=== PATIENT | female | born 1940 | race Caucasian/White ===

== ENCOUNTER → 2016-11-24 | Outpatient (CLI) | payer MEDICARE, BC ==
[~2016-11-24] MED LIST: COUMADIN PO; COUMADIN5 MG PO; CYCLOBENZAPRINE5 MG PO; HCTZ PO; LANOXIN PO; LISINOPRIL-HCTZ1 T15 PO; LOPRESSOR PO; MAGOX 400400 MG PO; NORVASC PO; TYLENOL325 M1 PO; ULTRAM PO; WARFARIN SODIUM6 M1 PO
--- NOTE | ~2016-11-24 | CO ---
Unit #: [id number] #: [id number] Patient: ESE HOLDER [id number] [address] [place], [place] [address] [id number] O MR#: [id number] NAME: ESE HOLDER ROOM: Age: 76 Sex: F Admission Date: 11/24/2016 : 1940 Attending Physician: Olivier Osei M.D. Primary Care Physician: Edmund Cabezas M.D. Consultation Date: 11/24/2016 CONSULTATION REPORT REASON FOR CONSULTATION Preoperative medical evaluation prior to left total hip arthroplasty scheduled by Dr. Osei for 12/06/2016. HISTORY OF PRESENT ILLNESS The patient is a 76-year-old female, who presents to preprocedural screening for the reasons indicated above. She has a known history of chronic atrial fibrillation, and is on chronic Coumadin therapy. 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 She underwent a myocardial perfusion study on 11/22/2016 and she has an appointment with him tomorrow to discuss the results and to confirm preoperative cardiac clearance. She denies upper chest, arm, neck, jaw, back pain or pressure. She denies shortness of air, dyspnea on exertion, paroxysmal nocturnal dyspnea and orthopnea. She denies lightheadedness or dizziness, presyncope, syncope or palpitations. She denies history of myocardial infarction, congestive heart failure, CVA, TIA, diabetes mellitus and kidney disease. She was evaluated by her dentist on 11/17/2016. PAST MEDICAL HISTORY 1. Osteoarthritis. 2. Chronic atrial fibrillation, on chronic Coumadin therapy. 3. GERD. 4. Hiatal hernia. 5. Hypertension. 6. Hyperlipidemia. 7. Dry eye (right eye). 8. Risk factors for obstructive sleep apnea. 9. Juarez's palsy. PAST SURGICAL HISTORY Hysterectomy. Please note the patient has a history of nausea with general anesthesia. ALLERGIES No known medication allergies. Denies latex allergy. CURRENT MEDICATIONS Lanoxin 0.125 mg p.o. daily, lisinopril/HCTZ 20/25 mg tablet one p.o. daily, Coumadin 5 mg p.o. daily except Sundays and Coumadin 6 mg p.o. on Tuesday. SOCIAL HISTORY Unit #: [id number] #: [id number] Patient: EES HOLDER Denies tobacco, EtOH and illicit drug use. FAMILY HISTORY Per review of Dr. Aceves's office note, father has heart disease with negative family history of myocardial infarction, congestive heart failure, hyperlipidemia or hypertension. REVIEW OF SYSTEMS The patient complains of irritation sensation in the right eye, which she attributes to history of dry eye. She was evaluated by Dr. Boudreaux, her motor rebuilder yesterday and given drops for the right eye, which she is to resume. She reports left eyelid droop when she gets tired from history of Juarez's palsy. A 10-point review of systems is conducted and otherwise negative except as indicated under history of present illness above. PHYSICAL EXAMINATION GENERAL: A 76-year-old, female, awake, alert, in no acute distress. VITAL SIGNS: Temperature 98.6, heart rate 96, respiratory rate 16, blood pressure 129/60, oxygen saturation 98% on room air. HEENT: Atraumatic, normocephalic. Sclerae anicteric. Notes minimal clear discharge from right eye, conjunctiva injected. No periorbital edema or erythema. Clear discharge from nares. No ear discharge. LYMPH: No preauricular, postauricular, tonsillar, submental, anterior-posterior cervical supra or infraclavicular adenopathy. ENDOCRINE: No thyromegaly, thyroid nodules or tenderness. RESPIRATORY: Clear to auscultation in all stover bilaterally without wheezes, rhonchi, or rales. CARDIOVASCULAR: S1, S2. Regular rate and rhythm without murmur or rub. GI: Bowel sounds are positive x4. Soft, nontender, nondistended. EXTREMITIES: 2+ bilateral lower extremity edema without cyanosis or clubbing. Calves are soft and nontender bilaterally. DIAGNOSTIC STUDIES LABORATORY RESULTS: WBC 7.7, hemoglobin 14.2, hematocrit 43.5, platelets 276,000. Blood type A positive, antibody screen positive. Sodium 139, potassium 3.6, chloride 102, CO2 of 28, glucose 118, BUN 12, creatinine 0.6, calcium 9.3, AST 21, ALT 16, alkaline phos 75, bilirubin total 0.9, total protein 6.5, albumin 3.4, PT 30.8, INR 2.8. Urinalysis result pending at this time. MRSA screen is pending. IMAGING STUDIES: Two-view chest x-ray report pending at this time. CARDIOVASCULAR STUDIES: 12-lead EKG, atrial fibrillation controlled ventricular response. No acute ST-T wave shifts. IMPRESSION The patient is a 76-year-old, female, who presents to preprocedural screening for 1. Preoperative medical evaluation prior to left total hip arthroplasty. The patient's Becerra revised cardiac risk index is equal to 0.4%. This represents the patient's risk of cardiac , fatal or nonfatal myocardial infarction, cardiopulmonary arrest, arrhythmia and/or pulmonary edema. This has been discussed in detail with the patient. She wishes to proceed with surgery as scheduled at this time. 2. History of chronic atrial fibrillation, on chronic Coumadin therapy. The patient's INR is therapeutic today. Perioperative anticoagulation management will be between Dr. Osei and in consultation with Dr. Aceves. Unit #: [id number] #: [id number] Patient: ESE HOLDER Preop clearance is pending at this time. The patient has been advised to keep her appointment tomorrow for this reason and for followup on the pharmacologic perfusion scan. 3. Gastroesophageal reflux disease. 4. Hiatal hernia. 5. Hypertension, the patient's blood pressure is stable today. We will monitor blood pressure perioperatively and adjust medications accordingly. 6. Hyperlipidemia. 7. Risk factors for obstructive sleep apnea. I have discussed this with the patient. We will place her on obstructive sleep apnea protocol postoperatively. 8. Dry eye, right eye. The patient is symptomatic at this time. She has been evaluated by her motor rebuilder. She is aware that she is to return to his office if symptoms worsen or do not improve. She has no vision complaints at this time. Thank you for allowing us to participate in the care of this patient. We will gladly follow her for postop medical management pending order of Dr. Osei's. Dictated by... Maryam Banks A.P.R.N. for Viktoria Henderson M.D. YUMIKO/elinor TD: 11/25/2016 01:59 JOB #: [id number] CONSULTATION REPORT X Maryam Banks APRN CONSULTATION REPORT
--- NOTE | ~2016-11-24 | CR63 ---
[facility] A Service of [facility] & [facility] RADIOLOGY TEXT RESULTS PATIENT: ESE HOLDER LOCATION: [facility] : 41 UNIT #: [id number] AGE: [address]: Olivier Osei MD SEX: F ORDER DR: [id number] [facility] [address] [facility] [place]. [place], [place] [address] [id number] O MR#: [id number] Acc #: [id number] NAME: ESE HOLDER : 1940 SEX: F STUDY DATE/TIME: 11/24/2016 10:57 UNIT: [facility] ROOM: STUDY DESCRIPTION: CR Chest 2 View Attending Physician: Olivier Osei M.D. Referring Physician: Olivier Osei M.D. Ordering Physician: Olivier Osei M.D. Primary Care Physician: Edmund Cabezas M.D. MEDICAL IMAGING REPORT This report is preliminary unless electronic signature is present EXAM Chest. DATE OF EXAM 11/24/2016 LOCATION [facility]. HISTORY 76-year-old woman preop clearance for left total hip arthroplasty. COMPARISON Chest, 02/13/2010. FINDINGS 2 view chest demonstrates mild cardiac enlargement. Hilar structures are normal. Lungs are clear with some compression atelectasis left base. There is chronic elevation of the left hemidiaphragm IMPRESSION 1. Stable mild cardiomegaly. 2. Chronic elevation of left hemidiaphragm with compression atelectasis left lung base. Dictated by... Hector Bateman M.D. THIS IS AN ELECTRONICALLY VERIFIED REPORT Hector Bateman M.D. at 11/24/2016 3:45 PM YAO/alejo [facility] A Service of [facility] & [facility] RADIOLOGY TEXT RESULTS PATIENT: ESE HOLDER LOCATION: [facility] : 41 UNIT #: [id number] AGE: [address]: Olivier Osei MD SEX: F ORDER DR: TD: 11/24/2016 15:39 JOB #: [id number] MEDICAL IMAGING REPORT COPY
--- NOTE | ~2016-11-24 | CO ---
Unit #: [id number] #: [id number] Patient: ESE HOLDER [id number] [address] [place], [place] [address] [id number] O MR#: [id number] NAME: ESE HOLDER ROOM: Age: 76 Sex: F Admission Date: 11/24/2016 : 1940 Attending Physician: Olivier Osei M.D. Primary Care Physician: Edmund Cabezas M.D. CONSULTATION REPORT ADDENDUM The patient's urine culture returned positive for Enterobacter aerogenes greater than 100,000 CFU/mL. The patient was contacted and confirmed she uses [facility] at [phone]. A prescription was called in to this pharmacy for Macrobid 100 mg p.o. q.12 hours x7 days #14 no refills. This is confirmed as sensitive per the urine culture and sensitivity report. I have also ordered to recheck the urine the a.m. of OR with a straight cath and to include C and S order if indicated. Dictated by... Maryam Banks A.P.R.N. for Pasquale Rodas/thad TD: 11/29/2016 17:07 JOB #: [id number] CONSULTATION REPORT X Maryam Banks APRN CONSULTATION REPORT
[2016-11-24 10:43] LABS: HEMATOCRIT 43.5 % (35.0-45.0); HEMOGLOBIN 14.2 gm/dL (12.0-16.0); MEAN CELL VOLUME 97.9 FL (83-96); MEAN CORPUSCULAR HGB CONC 32.7 g/dL (30-36); MEAN PLATELET VOLUME 8.1 FL (6.5-11.5); RED BLOOD COUNT 4.44 X10e (3.90-5.30); RED CELL DISTRIBUTION WIDTH 13.2 % (11.0-15.5); WHITE BLOOD COUNT 7.7 X10e3 (4.0-10.5)
[2016-11-24 10:56] LABS: INR 2.8; PROTHROMBIN TIME (PATIENT) 30.8 SECONDS (9.6-11.5)
[2016-11-24 11:11] LABS: ALBUMIN SERUM 3.4 g/dL (3.5-5.0); ALKALINE PHOSPHATASE 75 U/L (32-92); ALT (SGPT) 16 U/L (10-40); AST (SGOT) 21 U/L (10-42); BILIRUBIN,TOTAL 0.9 mg/dL (0.2-2.0); BLOOD UREA NITROGEN 12 mg/dL (9-23); CALCIUM SERUM 9.3 mg/dL (8.4-10.2); CARBON DIOXIDE 28 mmol/L (22-31); CHLORIDE 102 mmol/L (100-111); CREATININE SERUM 0.6 mg/dL (0.6-1.4); GLOM FILT RATE Estimated ABOVE60 mL/min (>60); GLUCOSE FASTING 118 mg/dL (70-110); POTASSIUM 3.6 mmol/L (3.5-5.1); PROTEIN TOTAL SERUM 6.5 g/dL (6.0-8.3); SODIUM 139 mmol/L (135-145)
[2016-11-24 12:27] LABS: URINE APPEARANCE CLEAR; URINE BILIRUBIN NEG (NEG); URINE BLOOD NEG (NEG); URINE COLOR YELLOW; URINE GLUCOSE NEG (NEG); URINE KETONE TRACE (NEG); URINE LEUKOCYTE ESTERASE TRACE (NEG); URINE NITRATE NEG (NEG); URINE PROTEIN NEG (NEG); URINE SPECIFIC GRAVITY 1.018 (1.003-1.035)
[2016-11-24 12:29] LABS: CULTURE INDICATED? YES; URBCS1 AUWI 0-2 /[HPF] (0-2); URINE BACTERIA AUWI 1+ (NEGATIVE); URINE SQUAMOUS EPITHELIAL CELL OCC /[HPF]
[2016-11-24 12:49] LABS: URINE SOURCE CLEAN CATCH
== END | disposition home or self-care (01) ==
LOC: CAMB 09:32
PROVIDERS: Orthopaedic Surgery
DX: Z01.818 Encounter for other preprocedural examination (principal); M16.12 Unilateral primary osteoarthritis, left hip; I51.7 Cardiomegaly; J98.11 Atelectasis; J98.6 Disorders of diaphragm; K21.9 Gastro-esophageal reflux disease without esophagitis; I10 Essential (primary) hypertension; E78.5 Hyperlipidemia, unspecified; I48.91 Unspecified atrial fibrillation; K44.9 Diaphragmatic hernia without obstruction or gangrene; Z79.01 Long term (current) use of anticoagulants; Z90.710 Acquired absence of both cervix and uterus
CPT/HCPCS: 36415; 71020; 80053; 81003; 85027; 85610; 86850; 86870; 86885; 86900; 86901; 87070; 87086; 87088; 87186

== ENCOUNTER 2016-12-06 05:27 | Inpatient (IN) | payer MEDICARE, BC ==
--- NOTE | ~2016-12-06 | CR144 ---
[facility] A Service of [facility] & [facility] RADIOLOGY TEXT RESULTS PATIENT: ESE HOLDER LOCATION: [facility] 565-01 : 41 UNIT #: [id number] AGE: [address]: Olivier Osei MD SEX: F ORDER DR: [id number] [facility] [address] [facility]. [place], [place] [address] [id number] I MR#: [id number] Acc #: [id number] NAME: ESE HOLDER : 1940 SEX: F STUDY DATE/TIME: 12/06/2016 9:11 UNIT: [id number] ROOM: STUDY DESCRIPTION: CR Hip 1 View Lt Attending Physician: Olivier Osei M.D. Ordering Physician: Olivier Osei M.D. Primary Care Physician: Edmund Cabezas M.D. MEDICAL IMAGING REPORT This report is preliminary unless electronic signature is present EXAM Left hip, 12/06/2016. HISTORY Status post hip arthroplasty today. Hip pain. FINDINGS Single AP view of the left hip was obtained. There has been placement of a well-positioned left hip arthroplasty. There is soft tissue gas, as expected, and there are overlying skin gianluca. No complications are identified. IMPRESSION Satisfactory single view of a left hip arthroplasty. Dictated by... Edmund Prasad Jr., M.D. THIS IS AN ELECTRONICALLY VERIFIED REPORT Edmund Prasad Jr., M.D. at 12/06/2016 4:47 PM DAISY/donna TD: 12/06/2016 12:10 JOB #: [id number] MEDICAL IMAGING REPORT Page 1 of 1 COPY
--- NOTE | ~2016-12-06 | OR ---
Unit #: [id number] #: [id number] Patient: ESE HOLDER [id number] [address] [place], [place] [address] [id number] I MR#: [id number] NAME: ESE HOLDER ROOM: 565 Date of Procedure: 12/06/2016 Admission Date: 12/06/2016 Surgeon: Olivier Osei M.D. : 1940 Attending Physician: Olivier Osei M.D. Primary Care Physician: Edmund Cabezas M.D. OPERATIVE REPORT PREOPERATIVE DIAGNOSIS Primary localized osteoarthritis of the left hip. POSTOPERATIVE DIAGNOSIS Primary localized osteoarthritis of the left hip. PROCEDURE PERFORMED Left total hip. ASSISTANTS Aurelia Shook and Gerard Montelongo. ANESTHESIA General. ESTIMATED BLOOD LOSS 200. INDICATIONS FOR PROCEDURE This is a 76-year-old lady with severe pain in her left hip. She has had pain for months, it has gotten progressively worse. She tried injections and anti-inflammatories with no relief of her discomfort. The pain limits her walking and standing, it also affects her sleep and because of the interference with her activities of daily living she has elected to proceed with a left total hip. X-rays show that she has [id number]-oe-pihw with subchondral sclerosis and periarticular osteophytes. DESCRIPTION OF PROCEDURE The patient was brought to the holding room, given 2 g of Kefzol, which will be continued postop, but discontinued within 23 hours the start time of surgery. The patient then was brought back to the operating room, given a general anesthetic, placed in decubitus position with the left side up. Left hip was prepped and draped in a sterile fashion. Modified Aufranc incision was mapped out and made. The subcutaneous dissected away and the fascia split longitudinally. Short rotators were taken down with the cautery unit. Posterior hip capsule was identified and this was T'd open. The hip was then dislocated posteriorly. The neck osteotomy performed. The head fragment removed. The femur retracted anteriorly and the labrum debrided. The acetabulum was reamed with basket reamers up to a 51 and a 52 mm Pomeroy Gription cup was opened and inserted in 40 degrees of abduction and 20 degrees of forward flexion. A neutral 36 trial liner was positioned in the cup. Piriformis sinus was cleaned out Unit #: [id number] #: [id number] Patient: ESE HOLDER with a rongeur and a knife. Starter reamer passed down and then the rigid reamers were used up to a size 5. Broaches were used up to a 5 and then a trial reduction was carried out. We found that we needed the +5, 36 head trial to give appropriate leg length and the stability was excellent. We then removed all the trials. The real liner was impacted into the cup. The periacetabular injection of ropivacaine was used. The canal was suctioned out. Then, the stem was impacted into 20 degrees of anteversion. After the stem was seated, we then did another trial reduction and found that the +5, 36 head was the appropriate leg length, so this was a +5, 36 metal head was opened and applied to the trunnion. The hip was reduced. Stability checked one last time and found to be excellent. We then injected the rest of the ropivacaine mixture. The wound was then irrigated with Betadine and then bacitracin. The capsule was repaired with 0 Vicryl. The fascia was closed with a running #1 Stratafix suture. The subcutaneous was closed with 0 and 2-0 Vicryl and gianluca in the skin. Sterile dressing applied and the patient's abduction pillow positioned and her general anesthetic reversed. Dictated by... Pasquale Adams/elinor TD: 12/06/2016 08:50 JOB #: [id number] OPERATIVE REPORT Page 1 of 1 X Olivier Osei MD PROCEDURE OPERATIVE NOTE
--- NOTE | ~2016-12-06 | CO ---
Unit #: [id number] #: [id number] Patient: ESE HOLDER [id number] [address] [place], [place] [address] [id number] I MR#: [id number] NAME: ESE HOLDER ROOM: 565 Age: 76 Sex: F Admission Date: 12/06/2016 : 1940 Attending Physician: Olivier Osei M.D. Primary Care Physician: Edmund Cabezas M.D. CONSULTATION REPORT REASON FOR CONSULTATION Hypotension. HISTORY OF PRESENT ILLNESS This is a 76-year-old white female, who is admitted status post left hip replacement. In the recovery room, the patient was hypotensive with systolic blood pressure of 77. She was started on IV fluids. The patient reports no chest pain or palpitations. She denies shortness of breath. She is known to have hypertension and paroxysmal atrial fibrillation where she is on anticoagulation with Coumadin. Just prior to her stress test as part of preoperative evaluation, she underwent stress test, which was normal. She is followed by Dr. Aceves. The patient takes hydrochlorothiazide at nightly, for which she took her scheduled medication last night. PAST MEDICAL HISTORY 1. Stress test in 11/2016 shows no obvious stress-induced ischemia. 2. Hypertension. 3. Paroxysmal atrial fibrillation, on anticoagulation with Coumadin. 4. GERD. 5. Glaucoma. 6. Osteoarthritis. 7. Nonsmoker. PAST SURGICAL HISTORY 1. Right knee replacement. 2. Laparoscopic cholecystectomy. 3. Hysterectomy. 4. Tonsillectomy. 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 She has never smoked. No illicit drug or alcohol use. FAMILY HISTORY Noncontributory. ALLERGIES No known drug allergies. HOME MEDICATIONS Lanoxin 0.125 mg daily, lisinopril/hydrochlorothiazide 20/25 mg daily, Coumadin 5 mg daily on Tuesday through Tuesday, Coumadin 6 mg on Tuesday. Unit #: [id number] #: [id number] Patient: ESE HOLDER REVIEW OF SYSTEMS CONSTITUTIONAL: Negative for fever or chills. Has no weight gain or weight loss. HEENT: No headache, hearing or vision change, difficulty with swallowing. No dizziness. CARDIOVASCULAR: Denies chest pain or palpitations. No syncope or near syncope. RESPIRATORY: Negative for dyspnea, cough, or hemoptysis. GASTROINTESTINAL: Denies abdominal pain, nausea, or vomiting. EXTREMITIES: She has no lower extremity edema. PHYSICAL EXAMINATION VITAL SIGNS: Blood pressure 93/46, heart rate 74. GENERAL: This is a pleasant obese 76-year-old white female, who is in no acute distress. NEUROLOGIC: She is awake, alert, and oriented. There are no focal weaknesses. NECK: Trachea is midline. No thyromegaly or lymphadenopathy. No jugular venous distention. HEART: S1, S2. Heart sounds are normal. No murmurs, rubs, or clicks. Regular rate and rhythm. LUNGS: Diminished breath sounds without rales, rhonchi, or wheezing. ABDOMEN: Soft and nontender with bowel sounds are present. EXTREMITIES: Without leg edema. DIAGNOSTIC STUDIES LABORATORY RESULTS: Hemoglobin 11.4, hematocrit 35.0, platelet count 272, white count 7.7. Sodium 139, potassium 3.4, BUN 11, creatinine 0.6, glucose 136. Troponin less than 0.03. TSH 2.22. CARDIOVASCULAR STUDIES: EKG; atrial fibrillation with a controlled ventricular rate at 80 beats per minute with nonspecific ST wave abnormalities. IMPRESSION 1. Status post left hip replacement. 2. Postop hypotension secondary to volume depletion. 3. Normal stress test per cardiac catheterization in 2017. 4. History of hypertension. PLAN 1. Cardiology was consulted for hypotension. We will continue IV fluids. Hypotension is most likely secondary to volume depletion. The patient took hydrochlorothiazide last evening and was also n.p.o. for surgery. 2. Hemoglobin is stable. 3. EKG shows no acute ischemic changes. 4. We will supplement electrolytes. 5. Dopamine drip if necessary. 6. Check 2D echocardiogram to evaluate left ventricular systolic function. 7. TSH is normal. 8. We will follow the patient with you. Thank you for allowing us to assist in this patient's care. Dictated by... Bryce Reyes A.P.R.N. Unit #: [id number] #: [id number] Patient: EES HOLDER EVA/elinor TD: 12/07/2016 01:40 JOB #: [id number] CONSULTATION REPORT Page 1 of 1 X Bryce Reyes APRN CONSULTATION REPORT
--- NOTE | ~2016-12-06 | EKG ---
PATIENT: ESE HOLDER UNIT #: [id number] Ventricular Rate: 80 BPM Atrial Rate: 79 BPM QRS Duration: 94 ms Q-T Interval: 408 ms QTC Calculation(Bezet): 470 ms Calculated R Herndon: 58 degrees Calculated T Herndon: 57 degrees Diagnosis Line: Undetermined rhythm Diagnosis Line: Otherwise normal ECG Diagnosis Line: When compared with ECG of 12-MAR-2010 08:49, Diagnosis Line: Current undetermined rhythm precludes rhythm Diagnosis Line: comparison, needs review Diagnosis Line: Non-specific change in ST segment in Inferior Diagnosis Line: leads Diagnosis Line: ST no longer depressed in Anterior leads Diagnosis Line: T wave inversion no longer evident in Inferior Diagnosis Line: leads Diagnosis Line: T wave inversion no longer evident in Diagnosis Line: Anterolateral leads Diagnosis Line: Confirmed by DOMINIQUE FLOYD MD ([id number]) on 12/06/2016 Diagnosis Line: 11:05:29 PM INTERPRETING MD: MARIEL BRADY
--- NOTE | ~2016-12-06 | DS ---
Unit #: [id number] #: [id number] Patient: ESE HOLDER [id number] [facility]. [place], [place] [address] [id number] I MR#: [id number] NAME: ESE HOLDER ROOM: 56 Age: 76 Sex: F Admission Date: 12/06/2016 : 1940 Discharge Date: 12/09/2016 Attending Physician: Olivier Osei M.D. Primary Care Physician: Edmund Cabezas M.D. DISCHARGE SUMMARY [facility] for medical management. Dr. Nicole from cardiology. REASON FOR ADMISSION 1. Severe left hip osteoarthritis. 2. Severe left hip pain. HOSPITAL COURSE The patient was admitted to [facility] with a history of severe osteoarthritis of her left hip. The patient had tried all conservative treatment including injections. The patient had undergone a left total hip arthroplasty. The patient tolerated the procedure well. There were no severe complications. She was taking pain medication which may have been a little too strong. She was sent to a monitored floor. The patient has recovered well. After discussion with Dr. Nicole, he feels like the patient is safe to go home today. Today the patient's temperature is 97.8, blood pressure 114/63, heart rate 96, respiratory rate 18. Her incision is healing well and neurovascular exam is intact. She has 2+ pulses in her lower extremities. The plan will be to go home later today under the care of [facility]. DISPOSITION Home with [facility]. DIAGNOSTIC DATA LABORATORY: Sodium 136, potassium 3.8, chloride 102, CO2 28, BUN 12, creatinine 0.8, glucose 121, PT 20.1, INR 1.9, white blood cell count 10.4, hemoglobin 11.4. DISCHARGE MEDICATIONS Per medication reconciliation list, she will be on 1. Regular home medications. 2. Dr. Nicole has added metoprolol 12.5 mg b.i.d. 3. She will be back on Coumadin 5 mg on all days of the week except Tuesday when she will get 6 mg of Coumadin. FOLLOWUP/INSTRUCTIONS 1. The patient will be discharged home later today. 2. She will need PT/INR on 12/10/2016, 12/13/2016, 12/16/2016, 12/20/2016, 12/23/2016. 3. The patient will need skin gianluca removed on 12/20/2016 and Steri-Strips placed 1/4 inch apart. 4. The patient will wear FELICITAS hose during the day and off at night. Unit #: [id number] #: [id number] Patient: ESE HOLDER 5. The patient will participate in physical therapy including home safety knowledge, home exercise program, dislocation precautions. 6. Will see the patient back in the office in six weeks. Dictated by... Adonay MunozC- KF/gz TD: 12/09/2016 08:58 JOB #: [id number] DISCHARGE SUMMARY Page 1 of 1 X X DISCHARGE SUMMARY
[~2016-12-06 05:27] MED LIST changes: -CYCLOBENZAPRINE5 MG PO; -LOPRESSOR PO; -MAGOX 400400 MG PO; -TYLENOL325 M1 PO; -ULTRAM PO
[2016-12-06 06:37] LABS: INR 1.1
[2016-12-06 06:43] LABS: PROTHROMBIN TIME (PATIENT) 11.3 SECONDS (9.6-11.5)
[2016-12-06 06:46] LABS: URINE APPEARANCE TURBID; URINE BLOOD NEG (NEG); URINE COLOR DK YELLOW; URINE GLUCOSE NEG (NEG); URINE KETONE TRACE (NEG); URINE LEUKOCYTE ESTERASE 2+ (NEG); URINE NITRATE NEG (NEG); URINE PH 5.5 (5-8); URINE PROTEIN TRACE (NEG); URINE SPECIFIC GRAVITY 1.019 (1.003-1.035)
[2016-12-06 06:48] LABS: CULTURE INDICATED? YES; URINE BACTERIA AUWI 4+ (NEGATIVE); URINE SQUAMOUS EPITHELIAL CELL MANY /[HPF]; UWBCS1 AUWI 50-100 (0-5)
[2016-12-06 06:58] LABS: URINE BILIRUBIN NEG (NEG)
[2016-12-06 07:00] LABS: URBCS1 AUWI 0-2 /[HPF] (0-2)
[2016-12-06 07:01] LABS: URINE MUCUS PRESENT; URINE SOURCE CLEAN CATCH
[2016-12-06 12:47] LABS: HEMOGLOBIN 11.4 gm/dL (12.0-16.0)
[2016-12-06 13:39] LABS: %MB 1.6 % (0.0-4.0); MB 4.7 ng/ml
[2016-12-06 14:18] LABS: BUN/CREATININE RATIO 18.33; CREATININE SERUM 0.6 mg/dL (0.6-1.4); GLOM FILT RATE Estimated 89.2 mL/min (>60); POTASSIUM 3.4 mmol/L (3.5-5.1)
[2016-12-06 19:05] LABS: CHOLESTEROL 133 mg/dL (0-200); HDL CHOLESTEROL 38 mg/dL (35-95); LDL CHOLESTEROL 76 mg/dL (-130); LDL/HDL RATIO 2 RATIO (0-4); TRIGLYCERIDES 96 mg/dL (10-160)
[2016-12-06 19:24] LABS: %MB 1.4 % (0.0-4.0); MB 8.8 ng/ml
[2016-12-07 06:27] LABS: HEMATOCRIT 34.4 % (35.0-45.0); HEMOGLOBIN 11.4 gm/dL (12.0-16.0); MEAN CORPUSCULAR HEMOGLOBIN 32.8 PG (28-34); MEAN CORPUSCULAR HGB CONC 33.2 g/dL (30-36); MEAN PLATELET VOLUME 8.1 FL (6.5-11.5); RED BLOOD COUNT 3.48 X10e (3.90-5.30); RED CELL DISTRIBUTION WIDTH 12.9 % (11.0-15.5); WHITE BLOOD COUNT 10.4 X10e3 (4.0-10.5)
[2016-12-07 07:37] LABS: BUN/CREATININE RATIO 17.14; CALCIUM SERUM 8.1 mg/dL (8.4-10.2); CREATININE SERUM 0.7 mg/dL (0.6-1.4); GLOM FILT RATE Estimated 84.8 mL/min (>60); MAGNESIUM 1.5 mg/dL (1.6-3.0); POTASSIUM 3.8 mmol/L (3.5-5.1)
[2016-12-07 12:44] LABS: INR 1.5; PARTIAL THROMBOPLASTIN TIME 31.5 SECONDS (23.5-31.3); PROTHROMBIN TIME (PATIENT) 15.7 SECONDS (9.6-11.5)
[2016-12-08 06:39] LABS: INR 1.7; PROTHROMBIN TIME (PATIENT) 17.9 SECONDS (9.6-11.5)
[2016-12-09 05:57] LABS: INR 1.9; PROTHROMBIN TIME (PATIENT) 20.1 SECONDS (9.6-11.5)
[2016-12-09] MEDS ORDERED: TYLENOL325 M1 PO (09:09)
[2016-12-09] MEDS ORDERED: MAGOX 400400 MG PO (09:11)
[2016-12-09] MEDS ORDERED: LOPRESSOR PO (09:12)
[2016-12-09] MEDS ORDERED: ULTRAM PO (09:13)
[2016-12-09] MEDS ORDERED: CYCLOBENZAPRINE5 MG PO (10:39)
== END 2016-12-09 18:11 | disposition home health service (06) | DRG 470 ==
LOC: CSUR 05:27 → CPACUOF 07:02 → C5C 14:02
PROVIDERS: Family Medicine; Internal Medicine Cardiovascular Disease; Nurse Practitioner; Orthopaedic Surgery
PROC: 0SRB02Z Replacement of Left Hip Joint with Metal on Polyethylene Synthetic Substitute, Open Approach (ICD-10-PCS; principal; 2016-12-06 07:00)
PROC: B24BYZZ Ultrasonography of Heart with Aorta using Other Contrast (ICD-10-PCS; 2016-12-07)
DX: M16.12 Unilateral primary osteoarthritis, left hip (principal); E83.42 Hypomagnesemia; I48.2 Chronic atrial fibrillation; D62 Acute posthemorrhagic anemia; Z96.651 Presence of right artificial knee joint; M17.12 Unilateral primary osteoarthritis, left knee; H40.9 Unspecified glaucoma; I10 Essential (primary) hypertension; K21.9 Gastro-esophageal reflux disease without esophagitis; Z90.49 Acquired absence of other specified parts of digestive tract; Z90.710 Acquired absence of both cervix and uterus; Z79.01 Long term (current) use of anticoagulants; E87.6 Hypokalemia; I95.81 Postprocedural hypotension
CPT/HCPCS: 73501; 80048; 80061; 81003; 82550; 82553; 83735; 84443; 84484; 85014; 85018; 85027; 85610; 85730; 86850; 86885; 86900; 86901; 86922; 87086; 88304; 88311; 93005; 93306; 94760; 94761; 94762; 97110; 97116; 97162; 97166; 97530; 97535; C1776; G8978-GP; G8979-GP; G8987-GO; G8988-GO; J0171; J0690; J0735; J1100; J1650; J1885; J2250; J2405; J2765; J2795; J3010; J3475